=== PATIENT | female | born 1970 | race Caucasian/White ===

== ENCOUNTER → 2020-04-21 | Outpatient (CLI) | payer OTHER ==
[2020-04-23 13:09] LABS: HPV 16 Negative (Negative); HPV 18 Negative (Negative); HPV OTHER HR TYPES Negative (Negative)
[2020-04-24 13:10] LABS: CHLAMYDIA BY NAA Negative (Negative); GONOCOCCUS BY NAA Negative (Negative); TRICH VAG BY NAA Negative (Negative)
== END ==
LOC: LAB SHORT 19:54 → LAB 19:54
PROVIDERS: Registered Nurse Community Health
DX: N89.8 Other specified noninflammatory disorders of vagina (principal)
CPT/HCPCS: 87491; 87591; 87624; 87661; G0123

== ENCOUNTER 2024-02-13 16:30 | Emergency (ER) | payer OTHER ==
[~2024-02-13] VITALS: Ht 162.6 cm; Wt 93.4 kg
[2024-02-13 16:50] VITALS: BP 164/85
[2024-02-13] MEDS ORDERED: Ketorolac Tromethamine 30mg Vial IM ONE (17:25)
== END 2024-02-13 17:35 | disposition home or self-care (01) ==
LOC: ER 16:30
DX: M25.562 Pain in left knee (principal); G89.29 Other chronic pain
CPT/HCPCS: 96372; 99282-25; J1885

== ENCOUNTER → 2024-03-21 | Outpatient (CLI) | payer OTHER ==
[2024-03-21 16:16] LABS: BODY FLUID RBC 1.787 M/mm3 (0-0); RBC Count, Synovial Fluid 1787000 /mm3 (0-0)
[2024-03-21 16:37] LABS: WBC Count, Synovial Fluid 2536 /mm3 (0-180)
[2024-03-21 17:05] LABS: Body Fluid Crystals NEG (NEGATIVE)
[2024-03-21 17:26] LABS: Appearance, Synovial Fluid Bloody (Clear); Color, Synovial Fluid Red (None-P Yel); Eos, Synovial Fluid 27 % (0-2); Lymphs, Synovial Fluid 22 % (0-15); Monocytes/Macrophages, Synovia 4 % (0-65); Neutrophils, Synovial Fluid 47 % (0-24)
== END ==
LOC: LAB 15:36 → LAB SHORT 15:36
PROVIDERS: Orthopaedic Surgery
DX: M25.462 Effusion, left knee (principal); M25.562 Pain in left knee
CPT/HCPCS: 87070; 87075; 87205; 89051; 89060

== ENCOUNTER 2024-07-03 08:55 | Day surgery (SDC) | payer OTHER ==
[~2024-07-03] VITALS: Ht 162.6 cm; Wt 94.0 kg
[~2024-07-03 08:55] MED LIST: ALLEGRA HIVES180 MG PO; Bupivacaine 0.5% HCl 5 MG/ML 30MLVIAL ONE; Dexamethasone Sod Phos 10 MG/ML 1ML VIAL ONE; EUTHYROX100 MCG PO; FentaNYL Citrate 50 MCG/ML 2 ML Injection ONE; Ketorolac Tromethamine 30mg Vial ONE; LEVOTHYROXINE112 M19 PO; Lactated Ringer's 1,000 ML IV ONE; Midazolam HCl 1MG / ML 2ML Vial ONE; Ondansetron HCl 2 MG / ML 2ML Vial ONE; propofoL 20 ML IV ONE
[2024-07-03] MEDS ORDERED: NS 50 ML IV ONE (09:36)
[2024-07-03] MEDS ORDERED: CeFAZolin Sodium 2,000 MG VIAL ONE (09:36)
[2024-07-03] MEDS ORDERED: Tranexamic Acid 100 ML IV ONE (09:44)
[2024-07-03] MEDS ORDERED: Lactated Ringer's 1,000 ML IV ONE (09:51)
[2024-07-03] MEDS ORDERED: Bupivacaine 0.75% Inj 30 ML Vial ONE (09:54)
[2024-07-03] MEDS ORDERED: EPINEPhrine HCl 1 MG / ML 30ML Vial ONE (09:56)
[2024-07-03] MEDS ORDERED: Rocuronium Bromide 10 MG/ML 5ML Injection IV ONE (10:06)
--- NOTE | 2024-07-03 10:14 | NUR ---
07/03/24 Christina Daley TIME OUT COMPLETED BY RN AT 0954 PRIOR TO DOING THE NERVE BLOCK WITH DR. BENTLEY. PT TOLERATED BLOCK WELL. 02 SATS MONITORED THROUGHOUT, PT WAS ON 2L VIA NASAL CANULA PER DR'S ORDERS.
--- NOTE | 2024-07-03 10:26 | NUR ---
07/03/24 1026 Grace Moncada 1 MG OF EPI ADDED TO FIRST 3 BAGS OF LR FOR IRREGATION.
[2024-07-03] MEDS ORDERED: FentaNYL Citrate 50 MCG/ML 2 ML Injection ONE ×2 (10:27→11:34)
[2024-07-03] MEDS ORDERED: Ethanolamine Oleate 50MG/ML 2ML Amp XX ONE (10:30)
[2024-07-03] MEDS ORDERED: Lidocaine 1%-Epineph 1:100000 20 ML MDV INJ ONE (10:31)
[2024-07-03] MEDS ORDERED: Sugammadex Sodium 200 MG/2ML SDV (100 MG/ML) ONE (10:42)
[2024-07-03 12:14] VITALS: BP 147/92
[2024-07-03] MEDS ORDERED: OxyCODONE HCL 5 MG TAB ONE ×2 (12:17→12:24)
--- NOTE | 2024-07-03 13:43 | NUR ---
07/03/24 1343 FARA KUMAR IV WAS REMOVED AT 1307. WNL. FLUID LEFT TO COUNT (ZERO). PT ASHLI WELL.
== END 2024-07-03 13:00 | disposition home or self-care (01) ==
LOC: ORSCSDS 08:55
PROVIDERS: Orthopaedic Surgery Sports Medicine
PROC: 0SSDXZZ Reposition Left Knee Joint, External Approach (ICD-10-PCS; principal; 2024-07-03 10:15)
PROC: 0SBD4ZZ Excision of Left Knee Joint, Percutaneous Endoscopic Approach (ICD-10-PCS; principal; 2024-07-03 10:15)
DX: M24.662 Ankylosis, left knee (principal); E66.9 Obesity, unspecified; Z68.35 Body mass index [BMI] 35.0-35.9, adult; Z79.899 Other long term (current) drug therapy; Z87.891 Personal history of nicotine dependence
CPT/HCPCS: A9270; J0171; J0690; J1100; J1430; J1885; J2250; J2405; J2704; J3010; J7120

== ENCOUNTER → 2024-10-09 | Outpatient (CLI) | payer OTHER ==
[~2024-10-09] MED LIST changes: -Bupivacaine 0.5% HCl 5 MG/ML 30MLVIAL ONE; -Dexamethasone Sod Phos 10 MG/ML 1ML VIAL ONE; -FentaNYL Citrate 50 MCG/ML 2 ML Injection ONE; -Ketorolac Tromethamine 30mg Vial ONE; -Lactated Ringer's 1,000 ML IV ONE; -Midazolam HCl 1MG / ML 2ML Vial ONE; -Ondansetron HCl 2 MG / ML 2ML Vial ONE; -propofoL 20 ML IV ONE
[2024-10-09 12:13] LABS: BASOPHILS ABSOLUTE AUTO 0.07 K/mm3 (0.00-0.23); BASOPHILS PERCENT AUTO 1 % (0-2); EOSINOPHILS ABSOLUTE AUTO 0.68 K/mm3 (0.00-0.68); EOSINOPHILS PERCENT AUTO 9 % (0-6); Hematocrit 43.1 % (33.0-51.0); Hemoglobin 14.2 g/dL (11.5-16.0); IMMATURE GRAN ABSOLUTE AUTO 0.01 K/mm3 (0.00-0.10); IMMATURE GRAN PERCENT AUTO 0 % (0-1); LYMPHOCYTES PERCENT AUTO 29 % (21-46); MONOCYTES ABSOLUTE AUTO 0.39 K/mm3 (0.16-1.47); MONOCYTES PERCENT AUTO 5 % (4-13); Mean Corpuscular HGB 27.3 pg (26.0-34.0); Mean Corpuscular HGB Conc 32.9 g/dL (31.5-36.5); Mean Corpuscular Volume 83 fL (80-100); Mean Platelet Volume 10.5 fL (9.1-12.4); NEUTROPHILS ABSOLUTE AUTO 4.24 K/mm3 (1.96-9.15); NEUTROPHILS PERCENT AUTO 56 % (41-73); Platelet Count 284 K/mm3 (150-400); RDW Coefficient Variation 12.4 % (11.7-14.2); RDW Standard Deviation 37.2 fL (35.1-46.3); Red Blood Cell Count 5.21 M/mm3 (3.80-5.20); White Blood Cell Count 7.59 K/mm3 (4.00-11.30)
[2024-10-09 12:33] LABS: Albumin, Blood 3.8 g/dL (3.4-5.0); Bilirubin, Total 0.7 mg/dL (0.1-1.0); Bun/Creatinine Ratio 20.3 (12.0-20.0); Calcium, Blood 9.5 mg/dL (8.5-10.1); Creatinine, Blood 0.74 mg/dL (0.40-1.00); Globulin, Blood 3.9 g/dL (2.2-4.0); Potassium, Blood 3.9 mmol/L (3.5-5.5); Thyroid Stimulating Hormone 0.568 uIU/mL (0.360-4.800); Total Protein, Blood 7.7 g/dL (6.4-8.2)
== END ==
LOC: LAB SHORT 12:09 → LAB 12:09
PROVIDERS: Physician Assistant
DX: E03.9 Hypothyroidism, unspecified (principal); K92.1 Melena
CPT/HCPCS: 80053; 84443; 85025

== ENCOUNTER → 2025-06-18 | Outpatient (CLI) | payer OTHER ==
[2025-06-18 13:28] LABS: Red Blood Cells, Urine Not Seen /hpf (0-2); Source, Urine Clean Catch; White Blood Cells, Urine Not Seen /hpf (0-5)
== END ==
LOC: LAB 13:27 → LAB SHORT 13:27
PROVIDERS: Family Medicine
DX: R30.0 Dysuria (principal)
CPT/HCPCS: 81015